=== PATIENT | female | born 1950 | race Caucasian/White ===

== ENCOUNTER 2021-06-03 17:19 | Inpatient (IN) | payer MEDICARE ==
[~2021-06-03] VITALS: Ht 162.6 cm; Wt 85.7 kg
[2021-06-03] MEDS ORDERED: ZINC50TA65 PO (17:50)
[2021-06-03] MEDS ORDERED: ASCO500P18 PO (17:50)
[2021-06-03] MEDS ORDERED: ACET-2605 PO (17:50)
[2021-06-03] MEDS ORDERED: MULT-213 PO (17:50)
[2021-06-03] MEDS ORDERED: DIVA-78 PO (17:50)
[2021-06-03] MEDS ORDERED: CITA20TA16 PO (17:50)
[2021-06-03] MEDS ORDERED: [UNRECOGNIZED DRUG - CODE] PO (17:50)
[2021-06-03] MEDS ORDERED: FERR89TA PO (17:50)
[2021-06-03] MEDS ORDERED: ARIP5TAB10 PO (17:50)
[2021-06-03] MEDS ORDERED: ATOR20TA PO (17:50)
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
[2021-06-03] MEDS ORDERED: IV NORMAL SALINE 1000 ML BAG IV ONE (18:00)
[2021-06-03] MEDS ORDERED: CEFTRIAXONE 1 G in IV DEXTROSE 5% 50 ML IV ONE (18:15)
[2021-06-03 18:28] LABS: HEMATOCRIT 32.6 % (31.2-41.9); MEAN CORPUSCULAR HEMOGLOBIN 30.3 uug (24.7-32.8); MEAN CORPUSCULAR VOLUME 93.1 fL (75.5-95.3); PLATELET COUNT (AUTO) 195 K/uL (179-408)
[2021-06-03] MEDS ORDERED: CEFTRIAXONE /D5W 50ML IVPB **ER PYXIS IV ONE (18:33)
[2021-06-03 18:35] LABS: CARBON DIOXIDE 26 mmol/L (21-32); CHLORIDE 103 mmol/L (98-107); CREATININE 1.4 mg/dL (0.6-1.3); GLUCOSE 96 mg/dL (74-106); POTASSIUM 4.2 mmol/L (3.5-5.1); UREA NITROGEN, BLOOD 48 mg/dL (7-18)
[2021-06-03 18:40] LABS: ALANINE AMINOTRANSFERASE 21 U/L (14-59); ALKALINE PHOSPHATASE 68 U/L (50-136); ASPARTATE AMINOTRANSFERASE 21 U/L (15-37); BILIRUBIN,DIRECT 0.1 mg/dL (0.0-0.2); BILIRUBIN,TOTAL 0.2 mg/dL (0.2-1.0); TOTAL PROTEIN, SERUM 7.5 g/dL (6.4-8.2)
[2021-06-03 19:04] LABS: ACETAMINOPHEN < 2.0 ug/mL (10-30)
[2021-06-03 19:05] LABS: ETHANOL < 3 MG/DL (0-0)
--- NOTE | 2021-06-03 19:18 | NUR ---
recieved report from Stormy VILLAFANA. Pt stable, VSS, slightly altered but AAOxname and date.
[2021-06-03 19:22] LABS: *CLARITY,URINE CLOUDY (CLEAR); *COLOR,URINE YELLOW (YELLOW)
[2021-06-03 19:23] LABS: *BILIRUBIN,URIN NEGATIVE (NEGATIVE); *BLOOD, URINE LARGE (NEGATIVE); *KETONES,URINE NEGATIVE (NEGATIVE); *UROBILINOGEN,URINE 0.2 E.U./dl (NORMAL); LEUKOCYTE ESTERASE ,URINE LARGE (NEGATIVE); NITRITE, URINE NEGATIVE (NEGATIVE); UGLUCOSE NEGATIVE (NEGATIVE)
[2021-06-03 19:26] LABS: BACTERIA,URINE MODERATE /HPF (NONE SEEN); RBC,URINE TNTC /HPF (0-3); SQUAMOUS EPITHELIAL CELL,UR FEW /HPF (NONE SEEN); URINE AMORPHOUS URATE MANY /HPF; WBC,URINE TNTC /HPF (0-3)
[2021-06-03 19:29] LABS: *AMPHETAMINE, URINE NEGATIVE (NEGATIVE); *CANNABINOID, URINE NEGATIVE (NEGATIVE); *COCCAINE, URINE NEGATIVE (NEGATIVE); *OPIATE, URINE NEGATIVE (NEGATIVE); *PHENCYCLIDINE SCREEN,URINE NEGATIVE (NEGATIVE)
--- NOTE | 2021-06-03 19:31 | NUR ---
hand off to aliza fuentes rn
--- NOTE | 2021-06-03 19:49 | NUR ---
Dr. Obrien on panel call with Dr. Russ Pearce.
--- NOTE | 2021-06-03 19:55 | NUR ---
[facility] called for admission authorization for pt to be transferred to [facility] for AMS. Pt resting comfortably and dozing of to sleep with audible snoring present.
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
--- NOTE | 2021-06-03 21:50 | NUR ---
House sup in dept with shaun-chair and a male MICROSTRATEGY BI DEVELOPER to asist in Pt transfer from [facility] to [facility]. Pt transfered into [facility] in one fluid motion without difficulty and pt tolerated well. Pt taken up to 307 with asistance on two male CNAs and transfered into bed in one fluid motion without difficulty. Pt tolerated transfer well, with no complaints of pain.
--- NOTE | 2021-06-03 22:00 | NUR ---
Admitted a 71 years old female with Dx of UTI. Pateint alert, oriented x1-2. Able to make needs known and answer simple question selectively. In no acute distress. No sign sor symptoms of pain or SOB. O2 sat at 97% on RA. SR with PAC's on tele at 66/min. IV site on right hand intact and patent. Noted with open wound on coccyx area, right buttock and left great toe. Redness under balwinder. breast area. Wound care done. Routine admission care done. Plan of care initiated. Safety measure initiated and call miller within reached. Continue to monitor.
--- NOTE | 2021-06-03 22:00 | NUR ---
Bladder scan done per order. No retention noted. With 97ml urine on bladder. Patient had incontinent episode during admission. Incontinent care done.
[2021-06-03 22:50] VITALS: BP 94/44
[2021-06-03] MEDS ORDERED: ONDANSETRON 4 MG/2 ML VIAL IV PRN (23:15)
[2021-06-04 00:05] VITALS: BP 117/46
[2021-06-04 04:15] VITALS: BP 105/48
[2021-06-04] MEDS: PANTOPRAZOLE SODIUM 40 MG TABLET.DR PO SCH (06:05)
--- NOTE | 2021-06-04 06:21 | NUR ---
AOx1-2. Answer simple question. Calm and cooperative. In no acute distress. Denies any pain or SOB. O2 sat at 98% on RA. SR with PAC's on tele at 72/min. IV site on right hand remain intact and patent. Bladder scan done per order. Only had 98ml of urine residual. Urinated this morning. Incontinent care provided. Turn and reposition every 2 hours. Safety measure maintained and call miller within reached.
[2021-06-04 06:43] LABS: HEMATOCRIT 33.2 % (31.2-41.9); MEAN CORPUSCULAR HEMOGLOBIN 30.5 uug (24.7-32.8); MEAN CORPUSCULAR VOLUME 93.3 fL (75.5-95.3); PLATELET COUNT (AUTO) 198 K/uL (179-408)
[2021-06-04 07:14] LABS: ALANINE AMINOTRANSFERASE 13 U/L (14-59); ALKALINE PHOSPHATASE 77 U/L (50-136); ASPARTATE AMINOTRANSFERASE 20 U/L (15-37); BILIRUBIN,TOTAL 0.2 mg/dL (0.2-1.0); CARBON DIOXIDE 27 mmol/L (21-32); CHLORIDE 111 mmol/L (98-107); CHOLESTEROL 111 mg/dL (<200); CREATININE 1.5 mg/dL (0.6-1.3); GLUCOSE 84 mg/dL (74-106); HDL CHOLESTEROL 35 mg/dL (40-60); MAGNESIUM 2.3 mg/dL (1.8-2.4); PHOSPHOROUS 3.7 mg/dL (2.5-4.9); POTASSIUM 4.4 mmol/L (3.5-5.1); TRIGLYCERIDES 79 MG/DL (30-150); UREA NITROGEN, BLOOD 31 mg/dL (7-18)
--- NOTE | 2021-06-04 07:30 | NUR ---
received patient laying in bed in no apparent distress. Pt on room air, rr even and non-labored, 0 episodes of shortness of breath at this time. patient is alert and oriented x1-2, iv site to right hand in place and patent. side rails up x2, with call light within reach.
[2021-06-04 08:30] LABS: THYROID STIMULATING HORMONE 1.575 mIU/mL (0.358-3.740)
[2021-06-04] MEDS: CALCIUM CARB/VITAMIN D 500MG-200UNITS TABLET PO SCH ×2 (08:36→17:45)
[2021-06-04] MEDS: MULTIVIT, IRON, MIN NO. 8, FA TABLET PO SCH (08:36)
[2021-06-04] MEDS: FERROUS SULFATE 325 MG TABEC PO SCH (08:36)
[2021-06-04] MEDS: DIVALPROEX 500 MG TABLET.DR PO SCH ×2 (08:37→17:45)
[2021-06-04] MEDS: ARIPIPRAZOLE 5 MG TABLET PO SCH (08:37)
[2021-06-04] MEDS: ASCORBIC ACID 500 MG TABLET PO SCH (08:37)
[2021-06-04] MEDS: ZINC SULFATE 220 MG CAPSULE PO SCH (08:37)
[2021-06-04] MEDS: CITALOPRAM 20 MG TABLET PO SCH (08:37)
[2021-06-04] MEDS: DOXYCYCLINE HYCLATE IV 100 MG in IV DEXTROSE 5% 100 ML IV SCH ×2 (08:38→20:32)
[2021-06-04 11:00] VITALS: BP 120/54
[2021-06-04] MEDS: HEPARIN SODIUM,PORCINE 5,000 UNITS/ML VIAL SQ SCH ×2 (13:33→21:54)
[2021-06-04 15:36] VITALS: BP 104/84
--- NOTE | 2021-06-04 17:00 | NUR ---
air matres delivered and placed on bed
[2021-06-04] MEDS: CEFTRIAXONE 1 G in IV DEXTROSE 5% 50 ML IV SCH (17:47)
--- NOTE | 2021-06-04 18:00 | NUR ---
sister at bed side all questions answered.
[2021-06-04] MEDS: IV D5W 1000ML 1,000 ML IV PRN (18:54)
[2021-06-04 20:06] VITALS: BP 97/60
[2021-06-04] MEDS: ATORVASTATIN 20 MG TABLET PO SCH (20:32)
[2021-06-05] VITALS: BP 127/60
[2021-06-05 04:09] VITALS: BP 108/46
--- NOTE | 2021-06-05 06:24 | NUR ---
Pt slept throughout the night. No distress noted. Pt is AOx1. Wound care done on patient's sacral region. No other issues or concerns at this time, will endorse to day shift.
[2021-06-05] MEDS ORDERED: PANTOPRAZOLE SODIUM 40 MG TABLET.DR PO ONE (06:27)
[2021-06-05 06:37] LABS: MEAN CORPUSCULAR HEMOGLOBIN 30.8 uug (24.7-32.8); MEAN CORPUSCULAR VOLUME 92.8 fL (75.5-95.3); PLATELET COUNT (AUTO) 220 K/uL (179-408)
[2021-06-05] MEDS: PANTOPRAZOLE SODIUM 40 MG TABLET.DR PO SCH (06:50)
[2021-06-05 07:03] LABS: ALANINE AMINOTRANSFERASE 20 U/L (14-59); ALKALINE PHOSPHATASE 77 U/L (50-136); ASPARTATE AMINOTRANSFERASE 20 U/L (15-37); BILIRUBIN,TOTAL 0.2 mg/dL (0.2-1.0); CARBON DIOXIDE 23 mmol/L (21-32); CHLORIDE 106 mmol/L (98-107); CREATINE KINASE, TOTAL 25 U/L (26-192); CREATININE 1.4 mg/dL (0.6-1.3); GLUCOSE 102 mg/dL (74-106); PHOSPHOROUS 3.2 mg/dL (2.5-4.9); POTASSIUM 3.8 mmol/L (3.5-5.1); TOTAL PROTEIN, SERUM 7.8 g/dL (6.4-8.2); UREA NITROGEN, BLOOD 30 mg/dL (7-18)
[2021-06-05] MEDS: IV D5W 1000ML 1,000 ML IV PRN (09:11)
[2021-06-05] MEDS: DIVALPROEX 500 MG TABLET.DR PO SCH ×2 (11:06→16:09)
[2021-06-05] MEDS: CALCIUM CARB/VITAMIN D 500MG-200UNITS TABLET PO SCH ×2 (11:06→16:09)
[2021-06-05] MEDS: CITALOPRAM 20 MG TABLET PO SCH (11:06)
[2021-06-05] MEDS: MULTIVIT, IRON, MIN NO. 8, FA TABLET PO SCH (11:06)
[2021-06-05] MEDS: ZINC SULFATE 220 MG CAPSULE PO SCH (11:06)
[2021-06-05] MEDS: ARIPIPRAZOLE 5 MG TABLET PO SCH (11:06)
[2021-06-05] MEDS: DOXYCYCLINE HYCLATE IV 100 MG in IV DEXTROSE 5% 100 ML IV SCH ×2 (11:08→20:44)
[2021-06-05] MEDS: ASCORBIC ACID 500 MG TABLET PO SCH (11:37)
[2021-06-05] MEDS: FERROUS SULFATE 325 MG TABEC PO SCH (11:38)
[2021-06-05] MEDS: HEPARIN SODIUM,PORCINE 5,000 UNITS/ML VIAL SQ SCH ×2 (11:39→20:46)
[2021-06-05] MEDS: ENSURE ENLIVE (VAN) 240 ML LIQUID PO SCH ×2 (12:00→18:10)
--- NOTE | 2021-06-05 12:30 | NUR ---
Pt is a/o x 1-2, bedbound on room air. Pt has q8h bladder scans, Bladder scan completed at 1230 with 180-200cc urine detected. if urine amount >300cc, straight cath needed. Pt is calm, cooperative and understanding of commands when conversation initiated. NO signs of acute distress at this time. Will continue to monitor.
[2021-06-05 13:14] VITALS: BP 148/60
[2021-06-05 15:40] VITALS: BP 126/51
[2021-06-05] MEDS: CEFTRIAXONE 1 G in IV DEXTROSE 5% 50 ML IV SCH (18:11)
[2021-06-05 20:43] VITALS: BP 141/69
[2021-06-05] MEDS: ATORVASTATIN 20 MG TABLET PO SCH (20:44)
--- NOTE | 2021-06-05 22:17 | NUR ---
Received patient AOX4. No acute distress noted. Denies SOB, Chest pain or dizziness. IV on the left wrist, patent and intact with no redness or swelling noted. Due medication was given, mixed in pudding. Patient tolerating well. Call light within reach. Safety and comfort measures maintained. Will continue to monitor. Addendum: 06/05/21 at 2233 by MARTI HUITRON RN Received patient AOx1-2.
--- NOTE | 2021-06-05 22:51 | NUR ---
Wound care done on patient's sacral region.
[2021-06-06 00:36] VITALS: BP 115/77
[2021-06-06] MEDS: IV D5W 1000ML 1,000 ML IV PRN (01:01)
[2021-06-06 04:48] VITALS: BP 112/57
[2021-06-06] MEDS: PANTOPRAZOLE SODIUM 40 MG TABLET.DR PO SCH (06:23)
[2021-06-06 06:30] LABS: HEMATOCRIT 31.5 % (31.2-41.9); MEAN CORPUSCULAR HEMOGLOBIN 30.5 uug (24.7-32.8); MEAN CORPUSCULAR VOLUME 92.3 fL (75.5-95.3); PLATELET COUNT (AUTO) 212 K/uL (179-408)
--- NOTE | 2021-06-06 06:31 | NUR ---
Pt slept intermittently through the night. No acute distress noted. Pt has q8h bladder scans, Bladder scan completed at 0600 with 187cc urine detected. If urine amount >300cc, straight cath is need. Will endorse to incoming nurse.
[2021-06-06 06:41] LABS: CREATININE 1.3 mg/dL (0.6-1.3); MAGNESIUM 1.7 mg/dL (1.8-2.4); PHOSPHOROUS 3.2 mg/dL (2.5-4.9)
[2021-06-06] MEDS: ENSURE ENLIVE (VAN) 240 ML LIQUID PO SCH ×3 (08:00→19:09)
[2021-06-06] MEDS: DIVALPROEX 500 MG TABLET.DR PO SCH ×2 (09:35→18:28)
[2021-06-06] MEDS: CITALOPRAM 20 MG TABLET PO SCH (09:35)
[2021-06-06] MEDS: MULTIVIT, IRON, MIN NO. 8, FA TABLET PO SCH (09:35)
[2021-06-06] MEDS: ARIPIPRAZOLE 5 MG TABLET PO SCH (09:35)
[2021-06-06] MEDS: ASCORBIC ACID 500 MG TABLET PO SCH (09:35)
[2021-06-06] MEDS: CALCIUM CARB/VITAMIN D 500MG-200UNITS TABLET PO SCH ×2 (09:36→20:49)
[2021-06-06] MEDS: FERROUS SULFATE 325 MG TABEC PO SCH (09:36)
[2021-06-06] MEDS: ZINC SULFATE 220 MG CAPSULE PO SCH (09:36)
[2021-06-06] MEDS: HEPARIN SODIUM,PORCINE 5,000 UNITS/ML VIAL SQ SCH ×2 (09:37→21:01)
[2021-06-06] MEDS: DOXYCYCLINE HYCLATE IV 100 MG in IV DEXTROSE 5% 100 ML IV SCH (09:40)
[2021-06-06] MEDS: MAGNESIUM SULFATE/D5W 100 ML IV SCH ×2 (10:55→12:43)
[2021-06-06 12:00] VITALS: BP 112/47
[2021-06-06 12:06] LABS: A/G RATIO 0.5 (0.7-1.7); ALBUMIN 2.3 g/dL (2.9-4.4); ALPHA-1-GLOBULIN 0.2 g/dL (0.0-0.4); BETA GLOBULIN 1.2 g/dL (0.7-1.3); GAMMA GLOBULIN 2.1 g/dL (0.4-1.8); GLOBULIN, TOTAL 4.6 g/dL (2.2-3.9); M-SPIKE Not Observed g/dL (Not Observed)
--- NOTE | 2021-06-06 12:22 | NUR ---
WOUND CARE CONSULT: PT PRESENTS WITH SACRAL STAGE 4 ULCER, RT BUTTOCK STAGE 3 ULCER AND LEFT GREAT TOENAIL MISSING, ALL PRESENT ON ADMISSION. SURGICAL CONSULT WAS PREVIOUSLY MADE BY PMD TO DR STEPHENSON AND PODIATRY CONSULT TO DR HENDRIX. RECOMMENDATIONS MADE FOR SKIN PROTECTION. DISCUSSED WITH NURSING STAFF AND IMPREGNATOR AND DRIER HELPER. FIRST STEP LOW AIRLOSS MATTRESS IS ON ORDER. MD IN AGREEMENT WITH PLAN OF CARE. Addendum: 06/06/21 at 1224 by ZEN LLOYD RN Amended: Links added.
[2021-06-06] MEDS ORDERED: Z GUARD REMEDY PASTE 57 GM TUBE TOP PRN (12:30)
[2021-06-06 16:00] VITALS: BP 101/68
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
[2021-06-06] MEDS: CEFTRIAXONE 1 G in IV DEXTROSE 5% 50 ML IV SCH (18:28)
[2021-06-06] MEDS ORDERED: ARGININE/GLUTAMINE/CALCIUM BMB 1 EACH POWD.PACK GT SCH (19:00)
[2021-06-06 20:10] VITALS: BP 98/71
[2021-06-06] MEDS: DOXYCYCLINE HYCLATE 100 MG TABLET PO SCH (20:49)
[2021-06-06] MEDS: ATORVASTATIN 20 MG TABLET PO SCH (20:49)
--- NOTE | 2021-06-06 21:00 | NUR ---
Patient alert to name no sob no chest pain, tele monitor sinus rhythm with episode of sinus tachy, no s/s of pain at this time, patient voiding well, post void residual 230, cont to monitor.
[2021-06-06] MEDS: Z GUARD REMEDY PASTE 57 GM TUBE TOP SCH (21:02)
[2021-06-06] MEDS: ACETAMINOPHEN 325 MG TABLET PO PRN (21:26)
[2021-06-07 00:05] VITALS: BP 97/42
[2021-06-07 04:07] VITALS: BP 145/61
[2021-06-07 06:10] LABS: HEMATOCRIT 32.7 % (31.2-41.9); MEAN CORPUSCULAR HEMOGLOBIN 30.7 uug (24.7-32.8); MEAN CORPUSCULAR VOLUME 93.6 fL (75.5-95.3); PLATELET COUNT (AUTO) 244 K/uL (179-408)
[2021-06-07] MEDS: PANTOPRAZOLE SODIUM 40 MG TABLET.DR PO SCH (06:23)
[2021-06-07 06:25] LABS: CREATININE 1.2 mg/dL (0.6-1.3); MAGNESIUM 2.2 mg/dL (1.8-2.4); PHOSPHOROUS 2.7 mg/dL (2.5-4.9); POTASSIUM 4.2 mmol/L (3.5-5.1)
--- NOTE | 2021-06-07 06:42 | NUR ---
Patient awake, no sob no chest pain, no complain of pain, patient voiding well, post void residual less than 300, 150 cc at this time. tx done on coccyx, right abdominal folds, kept heels elevated with pillow, cont to monitor.
--- NOTE | 2021-06-07 08:00 | NUR ---
Received pt from mine shifter RN. Pt had an infiltrated IV site and was inserted new IV access on L forearm by mine shifter nurse. Pt is calm and cooperative, no acute signs of distress or discomfort. changed wound dressing on right foot and coccyx. Will continue to monitor pt.
[2021-06-07] MEDS: ENSURE ENLIVE (VAN) 240 ML LIQUID PO SCH ×3 (09:00→18:10)
[2021-06-07] MEDS: Z GUARD REMEDY PASTE 57 GM TUBE TOP SCH (09:15)
[2021-06-07] MEDS: MULTIVIT, IRON, MIN NO. 8, FA TABLET PO SCH (09:35)
[2021-06-07] MEDS: DOXYCYCLINE HYCLATE 100 MG TABLET PO SCH (09:35)
[2021-06-07] MEDS: DIVALPROEX 500 MG TABLET.DR PO SCH ×2 (09:35→17:56)
[2021-06-07] MEDS: ASCORBIC ACID 500 MG TABLET PO SCH (09:35)
[2021-06-07] MEDS: CITALOPRAM 20 MG TABLET PO SCH (09:35)
[2021-06-07] MEDS: ARIPIPRAZOLE 5 MG TABLET PO SCH (09:35)
[2021-06-07] MEDS: HEPARIN SODIUM,PORCINE 5,000 UNITS/ML VIAL SQ SCH ×2 (09:36→21:19)
[2021-06-07] MEDS: FERROUS SULFATE 325 MG TABEC PO SCH (10:36)
[2021-06-07] MEDS: CALCIUM CARB/VITAMIN D 500MG-200UNITS TABLET PO SCH ×2 (10:37→18:10)
[2021-06-07] MEDS: ZINC SULFATE 220 MG CAPSULE PO SCH (10:37)
[2021-06-07 11:40] VITALS: BP 123/60
[2021-06-07] MEDS ORDERED: ARGININE/GLUTAMINE/CALCIUM BMB 1 EACH POWD.PACK PO SCH (11:50)
[2021-06-07] MEDS: ARGININE/GLUTAMINE/CALCIUM BMB 1 EACH POWD.PACK PO SCH ×2 (12:29→18:10)
[2021-06-07] MEDS: VANCOMYCIN IV 1,000 MG in IV DEXTROSE 5% 250 ML IV SCH (12:29)
--- NOTE | 2021-06-07 15:40 | NUR ---
Pt has an infiltrated IV. ordered Midline to be placed. Infiltrated IV removed by charge nurse. placed ice pack on arm.
[2021-06-07 15:54] VITALS: BP 124/52
--- NOTE | 2021-06-07 16:00 | NUR ---
Performed bladder scan on pt. 180cc detected. if greater than 300cc, straight cath required.
[2021-06-07] MEDS: CEFTRIAXONE 1 G in IV DEXTROSE 5% 50 ML IV SCH (17:56)
--- NOTE | 2021-06-07 18:48 | NUR ---
Pt is stable, no signs of acute distress or discomfort. R upper arm midline 18 g working with no complications. All medications taken, wound care provided. Pt is cooperative with care. Will endorse pt to hourly shift.
--- NOTE | 2021-06-07 19:00 | NUR ---
PATIENT AWAKE NO SOB NO CHEST PAIN, COMPLAIN OF LEG PAIN WHEN MOVING HER DURING ADL'S, HANDLE PATIENT GENTLY. TX DONE ON COCCYX WOUND AND LEFT BUTTOCKS EXCORIATIONS, PATIENT VOIDING FREELY, POST VOID RESIDUAL LESS THAN 300, CONT TO MONITOR.
[2021-06-07 20:00] VITALS: BP 123/61
[2021-06-07] MEDS: ATORVASTATIN 20 MG TABLET PO SCH (21:18)
[2021-06-08] MEDS: Z GUARD REMEDY PASTE 57 GM TUBE TOP SCH ×3 (00:25→20:44)
[2021-06-08 04:02] VITALS: BP 125/72
[2021-06-08 06:18] LABS: HEMATOCRIT 31.1 % (31.2-41.9); MEAN CORPUSCULAR HEMOGLOBIN 30.8 uug (24.7-32.8); MEAN CORPUSCULAR VOLUME 94.1 fL (75.5-95.3); PLATELET COUNT (AUTO) 278 K/uL (179-408)
[2021-06-08 06:33] LABS: CREATININE 1.2 mg/dL (0.6-1.3); POTASSIUM 4.2 mmol/L (3.5-5.1)
--- NOTE | 2021-06-08 06:41 | NUR ---
PATIENT AWAKE NO SOB NO CHEST PAIN, NO S/S OF PAIN AT THIS TIME, VOIDING WELL WITH YELLOW COLOR URINE IN MODERATE AMOUNT, POST VOID RESIDUAL LESS THAN 300, ABDOMEN SOFT. TX CONT ON COCCYX WOUND, KEPT ISAIAS LEG ELEVATED WITH PILLOW. CONT TO MONITOR
[2021-06-08] MEDS: PANTOPRAZOLE SODIUM 40 MG TABLET.DR PO SCH (07:05)
[2021-06-08] MEDS: ASCORBIC ACID 500 MG TABLET PO SCH (08:23)
[2021-06-08] MEDS: MULTIVIT, IRON, MIN NO. 8, FA TABLET PO SCH (08:23)
[2021-06-08] MEDS: ARIPIPRAZOLE 5 MG TABLET PO SCH (08:23)
[2021-06-08] MEDS: DIVALPROEX 500 MG TABLET.DR PO SCH ×2 (08:23→16:11)
[2021-06-08] MEDS: CITALOPRAM 20 MG TABLET PO SCH (08:24)
[2021-06-08] MEDS: HEPARIN SODIUM,PORCINE 5,000 UNITS/ML VIAL SQ SCH ×2 (08:25→20:50)
[2021-06-08] MEDS: ENSURE ENLIVE (VAN) 240 ML LIQUID PO SCH ×3 (08:53→18:39)
[2021-06-08] MEDS: ARGININE/GLUTAMINE/CALCIUM BMB 1 EACH POWD.PACK PO SCH ×2 (10:44→18:39)
[2021-06-08] MEDS: ZINC SULFATE 220 MG CAPSULE PO SCH (10:46)
[2021-06-08] MEDS: FERROUS SULFATE 325 MG TABEC PO SCH (10:46)
[2021-06-08] MEDS: CALCIUM CARB/VITAMIN D 500MG-200UNITS TABLET PO SCH ×2 (10:46→18:38)
[2021-06-08] MEDS: VANCOMYCIN IV 1,000 MG in IV DEXTROSE 5% 250 ML IV SCH (11:24)
[2021-06-08 11:48] VITALS: BP 104/56
[2021-06-08 16:00] VITALS: BP 116/62
[2021-06-08] MEDS: CEFTRIAXONE 1 G in IV DEXTROSE 5% 50 ML IV SCH (17:11)
[2021-06-08] MEDS ORDERED: IV D5LR 1,000 ML IV PRN (17:15)
[2021-06-08] MEDS: IV D5/ 0.9% NACL 1,000 ML IV PRN (17:40)
[2021-06-08 20:00] VITALS: BP 140/58
[2021-06-08] MEDS: ATORVASTATIN 20 MG TABLET PO SCH (20:44)
[2021-06-09 04:05] VITALS: BP 125/66
--- NOTE | 2021-06-09 05:52 | NUR ---
Pt slept throughout the night. No distress noted. IV site intact. Dressing changed, tolerated well. Safety and comfort provided, no other issues or concerns at this time, will endorse to day shift.
[2021-06-09] MEDS: ENSURE ENLIVE (VAN) 240 ML LIQUID PO SCH ×2 (06:32→10:39)
[2021-06-09] MEDS: PANTOPRAZOLE SODIUM 40 MG TABLET.DR PO SCH (06:34)
[2021-06-09 06:54] LABS: HEMATOCRIT 29.8 % (31.2-41.9); MEAN CORPUSCULAR HEMOGLOBIN 31.2 uug (24.7-32.8); MEAN CORPUSCULAR VOLUME 93.3 fL (75.5-95.3); PLATELET COUNT (AUTO) 269 K/uL (179-408)
[2021-06-09 07:09] LABS: CREATININE 1.1 mg/dL (0.6-1.3)
[2021-06-09] MEDS: CITALOPRAM 20 MG TABLET PO SCH (08:20)
[2021-06-09] MEDS: ASCORBIC ACID 500 MG TABLET PO SCH (08:20)
[2021-06-09] MEDS: DIVALPROEX 500 MG TABLET.DR PO SCH ×2 (08:20→16:28)
[2021-06-09] MEDS: MULTIVIT, IRON, MIN NO. 8, FA TABLET PO SCH (08:20)
[2021-06-09] MEDS: ARIPIPRAZOLE 5 MG TABLET PO SCH (08:20)
[2021-06-09] MEDS: HEPARIN SODIUM,PORCINE 5,000 UNITS/ML VIAL SQ SCH ×2 (08:22→20:01)
[2021-06-09] MEDS: Z GUARD REMEDY PASTE 57 GM TUBE TOP SCH ×2 (08:23→20:21)
[2021-06-09] MEDS: IV D5/ 0.9% NACL 1,000 ML IV PRN (09:37)
[2021-06-09] MEDS: FERROUS SULFATE 325 MG TABEC PO SCH (10:39)
[2021-06-09] MEDS: ARGININE/GLUTAMINE/CALCIUM BMB 1 EACH POWD.PACK PO SCH ×2 (10:39→19:29)
[2021-06-09] MEDS: ZINC SULFATE 220 MG CAPSULE PO SCH (10:39)
[2021-06-09] MEDS: CALCIUM CARB/VITAMIN D 500MG-200UNITS TABLET PO SCH ×2 (10:39→19:28)
[2021-06-09 10:47] VITALS: BP 143/71
[2021-06-09] MEDS: levoFLOXacin 500 MG TABLET PO SCH (11:41)
[2021-06-09] MEDS: AMPICILLIN 2 G in NS 100 ML IV SCH ×2 (13:46→21:06)
[2021-06-09] MEDS ORDERED: AMPICILLIN IV 1 G in IV NORMAL SALINE 50 ML IV SCH (14:00)
[2021-06-09 15:46] VITALS: BP 119/74
[2021-06-09] MEDS: PROTEIN SUPPLEMENT (PROSTAT) 30 ML LIQUID PO SCH (16:28)
[2021-06-09] MEDS: ATORVASTATIN 20 MG TABLET PO SCH (20:00)
[2021-06-09 20:18] VITALS: BP 142/65
[2021-06-10] MEDS: IV D5/ 0.9% NACL 1,000 ML IV PRN ×2 (03:41→21:32)
[2021-06-10 04:00] VITALS: BP 135/72
[2021-06-10] MEDS: AMPICILLIN 2 G in NS 100 ML IV SCH ×3 (05:05→21:19)
[2021-06-10] MEDS: PANTOPRAZOLE SODIUM 40 MG TABLET.DR PO SCH (06:04)
[2021-06-10 06:21] LABS: HEMATOCRIT 28.5 % (31.2-41.9); MEAN CORPUSCULAR VOLUME 92.8 fL (75.5-95.3); PLATELET COUNT (AUTO) 225 K/uL (179-408)
[2021-06-10 06:36] LABS: CREATININE 1.1 mg/dL (0.6-1.3); POTASSIUM 4.1 mmol/L (3.5-5.1)
--- NOTE | 2021-06-10 07:30 | NUR ---
Patient received in bed, alert and oriented x1 and confused, requires frequent reinforcements. On RA with no SOB or difficulties breathing. No acute distress noted. Right UA midline patent running IVF as ordered. Call light and personal belongings within easy reach. Will continue to monitor.
[2021-06-10] MEDS: MULTIVIT, IRON, MIN NO. 8, FA TABLET PO SCH (08:31)
[2021-06-10] MEDS: ASCORBIC ACID 500 MG TABLET PO SCH (08:31)
[2021-06-10] MEDS: ARIPIPRAZOLE 5 MG TABLET PO SCH (08:31)
[2021-06-10] MEDS: CITALOPRAM 20 MG TABLET PO SCH (08:31)
[2021-06-10] MEDS: Z GUARD REMEDY PASTE 57 GM TUBE TOP SCH ×2 (08:32→21:20)
[2021-06-10] MEDS: DIVALPROEX 500 MG TABLET.DR PO SCH ×2 (08:32→17:10)
[2021-06-10] MEDS: HEPARIN SODIUM,PORCINE 5,000 UNITS/ML VIAL SQ SCH ×2 (08:32→21:20)
[2021-06-10] MEDS: PROTEIN SUPPLEMENT (PROSTAT) 30 ML LIQUID PO SCH ×2 (08:33→17:10)
[2021-06-10] MEDS: ENSURE ENLIVE (VAN) 240 ML LIQUID PO SCH (08:33)
[2021-06-10 11:15] VITALS: BP 128/79
[2021-06-10] MEDS: CALCIUM CARB/VITAMIN D 500MG-200UNITS TABLET PO SCH ×2 (11:39→18:08)
[2021-06-10] MEDS: levoFLOXacin 500 MG TABLET PO SCH (11:39)
[2021-06-10] MEDS: FERROUS SULFATE 325 MG TABEC PO SCH (11:39)
[2021-06-10] MEDS: ARGININE/GLUTAMINE/CALCIUM BMB 1 EACH POWD.PACK PO SCH ×2 (11:39→18:08)
[2021-06-10] MEDS: ZINC SULFATE 220 MG CAPSULE PO SCH (11:39)
[2021-06-10 15:14] VITALS: BP 149/69
[2021-06-10 20:11] VITALS: BP 135/79
[2021-06-10] MEDS: ACETAMINOPHEN 325 MG TABLET PO PRN (21:19)
[2021-06-10] MEDS: ATORVASTATIN 20 MG TABLET PO SCH (21:19)
[2021-06-11 04:27] VITALS: BP 134/82
--- NOTE | 2021-06-11 05:33 | NUR ---
Pt slept throughout the night. Denies pain or SOB. Wound care done to sacral area. IV site intact. No distress noted. Safety and comfort provided. No other issues or concerns at this time, will endorse to day shift.
[2021-06-11] MEDS: PANTOPRAZOLE SODIUM 40 MG TABLET.DR PO SCH (06:30)
[2021-06-11] MEDS: AMPICILLIN 2 G in NS 100 ML IV SCH ×3 (06:31→21:17)
[2021-06-11 07:58] LABS: HEMATOCRIT 31.2 % (31.2-41.9); MEAN CORPUSCULAR HEMOGLOBIN 31.4 uug (24.7-32.8); MEAN CORPUSCULAR VOLUME 94.9 fL (75.5-95.3); PLATELET COUNT (AUTO) 243 K/uL (179-408)
[2021-06-11 08:10] LABS: CREATININE 1.1 mg/dL (0.6-1.3); POTASSIUM 3.7 mmol/L (3.5-5.1)
[2021-06-11] MEDS: Z GUARD REMEDY PASTE 57 GM TUBE TOP SCH ×2 (08:30→20:13)
[2021-06-11] MEDS: CITALOPRAM 20 MG TABLET PO SCH (08:30)
[2021-06-11] MEDS: DIVALPROEX 500 MG TABLET.DR PO SCH ×2 (08:30→16:58)
[2021-06-11] MEDS: MULTIVIT, IRON, MIN NO. 8, FA TABLET PO SCH (08:30)
[2021-06-11] MEDS: ARIPIPRAZOLE 5 MG TABLET PO SCH (08:30)
[2021-06-11] MEDS: ASCORBIC ACID 500 MG TABLET PO SCH (08:30)
[2021-06-11] MEDS: HEPARIN SODIUM,PORCINE 5,000 UNITS/ML VIAL SQ SCH ×2 (08:31→20:06)
[2021-06-11] MEDS: PROTEIN SUPPLEMENT (PROSTAT) 30 ML LIQUID PO SCH ×2 (08:31→17:31)
[2021-06-11] MEDS: ENSURE ENLIVE (VAN) 240 ML LIQUID PO SCH (08:31)
[2021-06-11] MEDS: CALCIUM CARB/VITAMIN D 500MG-200UNITS TABLET PO SCH ×2 (10:01→18:20)
[2021-06-11] MEDS: ZINC SULFATE 220 MG CAPSULE PO SCH (10:01)
[2021-06-11] MEDS: FERROUS SULFATE 325 MG TABEC PO SCH (10:01)
[2021-06-11] MEDS: ARGININE/GLUTAMINE/CALCIUM BMB 1 EACH POWD.PACK PO SCH ×2 (10:02→18:20)
[2021-06-11 11:05] VITALS: BP 139/85
[2021-06-11] MEDS ORDERED: NUTR1PAC14 PO (11:49)
[2021-06-11] MEDS ORDERED: PANT40TA49 PO (11:49)
[2021-06-11] MEDS ORDERED: PROT30LI PO (11:49)
[2021-06-11] MEDS ORDERED: LINE600T12 PO (11:49)
[2021-06-11] MEDS ORDERED: LEVO500T90 PO (11:49)
[2021-06-11] MEDS: levoFLOXacin 500 MG TABLET PO SCH (12:33)
[2021-06-11] MEDS: IV D5/ 0.9% NACL 1,000 ML IV PRN (13:50)
[2021-06-11 15:15] VITALS: BP 140/66
[2021-06-11] MEDS: ATORVASTATIN 20 MG TABLET PO SCH (20:06)
[2021-06-11 20:42] VITALS: BP 143/78
[2021-06-12 04:20] VITALS: BP 130/68
[2021-06-12] MEDS: AMPICILLIN 2 G in NS 100 ML IV SCH ×3 (05:10→21:00)
[2021-06-12] MEDS: PANTOPRAZOLE SODIUM 40 MG TABLET.DR PO SCH (06:12)
[2021-06-12 07:16] LABS: HEMATOCRIT 30.4 % (31.2-41.9); MEAN CORPUSCULAR HEMOGLOBIN 31.4 uug (24.7-32.8); MEAN CORPUSCULAR VOLUME 92.6 fL (75.5-95.3); PLATELET COUNT (AUTO) 236 K/uL (179-408)
[2021-06-12 07:31] LABS: CREATININE 1.1 mg/dL (0.6-1.3); POTASSIUM 3.7 mmol/L (3.5-5.1)
[2021-06-12] MEDS: ASCORBIC ACID 500 MG TABLET PO SCH (08:15)
[2021-06-12] MEDS: MULTIVIT, IRON, MIN NO. 8, FA TABLET PO SCH (08:15)
[2021-06-12] MEDS: CITALOPRAM 20 MG TABLET PO SCH (08:15)
[2021-06-12] MEDS: DIVALPROEX 500 MG TABLET.DR PO SCH ×2 (08:15→16:04)
[2021-06-12] MEDS: ARIPIPRAZOLE 5 MG TABLET PO SCH (08:15)
[2021-06-12] MEDS: HEPARIN SODIUM,PORCINE 5,000 UNITS/ML VIAL SQ SCH ×2 (08:30→20:07)
[2021-06-12] MEDS: PROTEIN SUPPLEMENT (PROSTAT) 30 ML LIQUID PO SCH ×2 (08:36→16:04)
[2021-06-12] MEDS: Z GUARD REMEDY PASTE 57 GM TUBE TOP SCH ×2 (08:36→20:59)
[2021-06-12] MEDS: ENSURE ENLIVE (VAN) 240 ML LIQUID PO SCH (08:36)
[2021-06-12] MEDS: CALCIUM CARB/VITAMIN D 500MG-200UNITS TABLET PO SCH ×2 (10:48→19:44)
[2021-06-12] MEDS: ARGININE/GLUTAMINE/CALCIUM BMB 1 EACH POWD.PACK PO SCH ×2 (10:49→19:45)
[2021-06-12] MEDS: ZINC SULFATE 220 MG CAPSULE PO SCH (10:49)
[2021-06-12] MEDS: FERROUS SULFATE 325 MG TABEC PO SCH (10:49)
[2021-06-12] MEDS: levoFLOXacin 500 MG TABLET PO SCH (11:26)
[2021-06-12 12:00] VITALS: BP 136/79
[2021-06-12 16:37] VITALS: BP 128/80
[2021-06-12] MEDS: ATORVASTATIN 20 MG TABLET PO SCH (20:03)
[2021-06-12 20:43] VITALS: BP 118/67
[2021-06-13] MEDS: ACETAMINOPHEN 325 MG TABLET PO PRN (04:48)
[2021-06-13 04:52] VITALS: BP 140/62
[2021-06-13] MEDS: AMPICILLIN 2 G in NS 100 ML IV SCH ×2 (05:05→15:23)
[2021-06-13] MEDS: PANTOPRAZOLE SODIUM 40 MG TABLET.DR PO SCH (06:05)
[2021-06-13 06:13] LABS: HEMATOCRIT 29.1 % (31.2-41.9); MEAN CORPUSCULAR HEMOGLOBIN 30.6 uug (24.7-32.8); MEAN CORPUSCULAR VOLUME 92.3 fL (75.5-95.3); PLATELET COUNT (AUTO) 277 K/uL (179-408)
[2021-06-13 06:24] LABS: CARBON DIOXIDE 21 mmol/L (21-32); CHLORIDE 106 mmol/L (98-107); CREATININE 1.6 mg/dL (0.6-1.3); GLUCOSE 105 mg/dL (74-106); POTASSIUM 3.3 mmol/L (3.5-5.1); UREA NITROGEN, BLOOD 24 mg/dL (7-18)
[2021-06-13] MEDS: ENSURE ENLIVE (VAN) 240 ML LIQUID PO SCH (09:33)
[2021-06-13] MEDS: ARIPIPRAZOLE 5 MG TABLET PO SCH (09:33)
[2021-06-13] MEDS: DIVALPROEX 500 MG TABLET.DR PO SCH (09:33)
[2021-06-13] MEDS: MULTIVIT, IRON, MIN NO. 8, FA TABLET PO SCH (09:33)
[2021-06-13] MEDS: CITALOPRAM 20 MG TABLET PO SCH (09:33)
[2021-06-13] MEDS: ASCORBIC ACID 500 MG TABLET PO SCH (09:33)
[2021-06-13] MEDS: Z GUARD REMEDY PASTE 57 GM TUBE TOP SCH (09:34)
[2021-06-13] MEDS: PROTEIN SUPPLEMENT (PROSTAT) 30 ML LIQUID PO SCH (09:34)
[2021-06-13] MEDS: HEPARIN SODIUM,PORCINE 5,000 UNITS/ML VIAL SQ SCH (09:35)
[2021-06-13] MEDS ORDERED: POTASSIUM CHLORIDE 10 MEQ TAB.PRT.SR PO ONE (11:15)
[2021-06-13] MEDS: ZINC SULFATE 220 MG CAPSULE PO SCH (11:40)
[2021-06-13] MEDS: FERROUS SULFATE 325 MG TABEC PO SCH (11:40)
[2021-06-13] MEDS: CALCIUM CARB/VITAMIN D 500MG-200UNITS TABLET PO SCH (11:40)
[2021-06-13] MEDS: levoFLOXacin 500 MG TABLET PO SCH (11:48)
[2021-06-13] MEDS: ARGININE/GLUTAMINE/CALCIUM BMB 1 EACH POWD.PACK PO SCH (11:49)
[2021-06-13 11:53] VITALS: BP 107/50
[2021-06-13 15:40] VITALS: BP 99/59
--- NOTE | 2021-06-13 18:37 | NUR ---
Patient picked up by ambulance. Transfer to [facility] via gurney. Vital signs stable. No signs of acute distress noted. Right upper arm picc line removed by RN. No signs of bleeding or infection noted. Discharge instructions given to patient. Assisted with needs.
== END 2021-06-13 20:00 | DRG 853 ==
LOC: ER 17:19 → EDBD 17:19 → TELE3 20:43 → MEDSURG3 06-07 08:55
PROVIDERS: ADMIT Nurse Practitioner Family; ATTEND Nurse Practitioner Acute Care
PROC: 0KBP0ZZ Excision of Left Hip Muscle, Open Approach (ICD-10-PCS; principal; 2021-06-06)
PROC: 0JB70ZZ Excision of Back Subcutaneous Tissue and Fascia, Open Approach (ICD-10-PCS; 2021-06-06)
PROC: 0KBN0ZZ Excision of Right Hip Muscle, Open Approach (ICD-10-PCS; 2021-06-06)
PROC: 05H533Z Insertion of Infusion Device into Right Subclavian Vein, Percutaneous Approach (ICD-10-PCS; 2021-06-07)
PROC: B546ZZA Ultrasonography of Right Subclavian Vein, Guidance (ICD-10-PCS; 2021-06-07)
DX: A41.51 Sepsis due to Escherichia coli [E. coli] (principal); L89.133 Pressure ulcer of right lower back, stage 3; L89.154 Pressure ulcer of sacral region, stage 4; E43 Unspecified severe protein-calorie malnutrition; G93.41 Metabolic encephalopathy; N17.0 Acute kidney failure with tubular necrosis; E87.0 Hyperosmolality and hypernatremia; N13.6 Pyonephrosis; L03.032 Cellulitis of left toe; E78.5 Hyperlipidemia, unspecified; E83.42 Hypomagnesemia; E86.1 Hypovolemia; G40.909 Epilepsy, unspecified, not intractable, without status epilepticus; N18.9 Chronic kidney disease, unspecified; Z20.822 Contact with and (suspected) exposure to COVID-19; Z74.01 Bed confinement status; Z86.73 Personal history of transient ischemic attack (TIA), and cerebral infarction without residual deficits; E66.9 Obesity, unspecified; Z68.32 Body mass index [BMI] 32.0-32.9, adult; B95.2 Enterococcus as the cause of diseases classified elsewhere; B96.5 Pseudomonas (aeruginosa) (mallei) (pseudomallei) as the cause of diseases classified elsewhere; M79.675 Pain in left toe(s); M62.50 Muscle wasting and atrophy, not elsewhere classified, unspecified site; I12.9 Hypertensive chronic kidney disease with stage 1 through stage 4 chronic kidney disease, or unspecified chronic kidney disease; S91.102A Unspecified open wound of left great toe without damage to nail, initial encounter; X58.XXXA Exposure to other specified factors, initial encounter; Y93.9 Activity, unspecified; Y92.009 Unspecified place in unspecified non-institutional (private) residence as the place of occurrence of the external cause
CPT/HCPCS: 36415; 70030-TC; 70450; 71045; 76770; 80164; 83605; 83735; 83970; 84100; 84155; 84165; 84443; 85025; 87040; 87070; 87077; 87086; 93005; 93307; 97161; A4217; A4663; A6209; C1758; G0378; G0480; J0290; J0696; J1644; J3370; J3475; J3490; J7030; J7040; J7042; J7060; J7070